=== PATIENT | male | born 2000 | race Caucasian/White ===

== ENCOUNTER 2023-08-29 06:06 | Emergency (ER) | payer BC, SELFPAY ==
[2023-08-29 06:18] VITALS: BP 147/83; PULSE 67; RESP 16; TEMP 36.5; O2SAT 98; BMI 22.3
--- NOTE | 2023-08-29 06:29 | ED.DENTAL1 ---
HPI - Dental/Oral General Chief complaint: Dental/Oral Stated complaint: Dental Pain Time Seen by Provider: 08/29/23 06:26 Source: patient Mode of arrival: walk-in Limitations: no limitations History of Present Illness HPI Narrative: patient presents complaining of dental pain that started last PM. Took [place] last night. Woke up this AM with increased pain. No fever or obvious swelling. No associated nausea Teeth map: 1. dental caries/tender Related Data Home Medications Medication Instructions Recorded Confirmed No Known Home Medications 08/29/23 08/29/23 Allergies Allergy/AdvReac Type Severity Reaction Status Date / Time No Known Drug Allergies Allergy Verified 08/29/23 06:24 Review of Systems ROS Status of ROS 10 or more systems reviewed and unremarkable except as noted in history and below PFSH PFS Social History Smoking status: Never smoker Exam Constitutional Vital Signs, click to edit/add: Last Vital Signs Temp 97.7 F 08/29/23 06:18 Pulse 67 08/29/23 06:18 Resp 16 08/29/23 06:18 BP 147/83 H 08/29/23 06:18 Pulse Ox 98 08/29/23 06:18 General appearance: in distress (mild distress) mild HENMT Common normals: normocephalic and head/scalp atraumatic Teeth and gingiva image: 1. Eye Common normals: PERRL and EOMs intact bilaterally Respiratory Common normals: normal respiratory effort, no retractions, no use of accessory muscles and clear to auscultation bilaterally Cardio Common normals: regular rate and regular rhythm Extremity Common normals: normal to inspection and full ROM Neuro Common normals: oriented x3, CN's II-XII intact bilaterally, moves all extremities and no focal motor deficits Psych Appearance: grossly normal Course Vital Signs Vital signs: Vital Signs Temperature 97.7 F 08/29/23 06:18 Pulse Rate 67 08/29/23 06:18 Respiratory Rate 16 08/29/23 06:18 Blood Pressure 147/83 H 08/29/23 06:18 Pulse Oximetry 98 08/29/23 06:18 Temperature 97.7 F 08/29/23 06:18 Pulse Rate 67 08/29/23 06:18 Respiratory Rate 16 08/29/23 06:18 Blood Pressure 147/83 H 08/29/23 06:18 Pulse Oximetry 98 08/29/23 06:18 MDM - Dental/Oral MDM Narrative Medical decision making narrative: patient presents with dental pain. Has left lower posterior molar caries that is tender and reproduces symptoms. No obvious swelling. Prescribed Augmentin and ibuprofen. He has norco at home. Took some last night and woke up this AM with increased pain. advised to follow up with his dentist this upcoming week Discharge Plan Discharge Chief Complaint: Dental/Oral Clinical Impression: Dental abscess Patient Disposition: Home, Self-Care Prescriptions / Home Meds: No Action No Known Home Medications Instructions: Dental Abscess (ED) Additional Instructions: follow up with your dentist next week Stand Alone Forms: Portal Instructions Referrals: Kiko Harris MD [Primary Care Provider] - 1 week
[2023-08-29] MEDS: IBUPROFEN 400 MG TABLET 800 MG PO (06:56)
[2023-08-29] MEDS: AMOXICILLIN/POTASSIUM CLAV 1 TAB TABLET PO (06:59)
== END 2023-08-29 07:01 | disposition home or self-care (01) ==
PROVIDERS: Emergency Provider Internal Medicine; PCP Family Medicine
DX: K04.7 Periapical abscess without sinus (principal)
CPT/HCPCS: 99283